=== PATIENT | female | born 1970 | race Caucasian/White ===

== ENCOUNTER → 2024-01-20 06:44 | Outpatient (REF) | payer BC, SELFPAY ==
[2024-01-20 07:22] LABS: % Eosinophils 6.4 % (0-6); % Immature Granulocytes 0.4 % (0-0.5); % Lymphocytes 29.6 % (20.5-51.1); % Neutrophils 53.6 % (42.2-75.2); Absolute Basophils 0.1 10^3/uL (0-0.2); Absolute Eosinophils 0.7 10^3/uL (0-0.7); Absolute Monocytes 0.9 10^3/uL (0.1-0.6); Absolute Neutrophils 5.4 10^3/uL (1.4-6.5); Hematocrit 40.6 % (37.0-47.0); Hemoglobin 13.5 g/dL (12.0-16.0); Mean Corp Hgb Conc. 33.3 g/dL (33.0-37.0); Mean Corpuscular Volume 87.1 fL (81.0-99.0); Mean Platelet Volume 9.2 fL (7.4-10.4); Nucleated Red Blood Cells % 0 %; Platelet Count 409 10^3/uL (130-400); Red Blood Cell Count 4.66 10^6/uL (4.20-5.40); White Blood Cell Count 10.1 10^3/uL (4.8-10.8)
[2024-01-20 07:36] LABS: ALT (SGPT) 25 U/L (0-35); AST (SGOT) 23 U/L (14-36); Albumin 3.9 g/dl (3.5-5.0); Alkaline Phosphatase 142 U/L (38-126); Blood Urea Nitrogen 14 mg/dl (7-17); Calcium 9.1 mg/dl (8.4-10.2); Carbon Dioxide 27 mmol/L (22-30); Chloride 105 mmol/L (98-107); Glucose 119 mg/dl (70-99); Potassium 4.1 mmol/L (3.5-5.1); Sodium 138 mmol/L (135-145); Total Bilirubin 0.6 mg/dl (0.2-1.3); eGFR > 60.00
== END ==
LOC: REG 06:44
PROVIDERS: ATTENDING PHYSICIAN Nurse Practitioner Adult Health; FAMILY PHYSICIAN Family Medicine; REFERRING PHYSICIAN Internal Medicine Rheumatology
DX: E66.01 Morbid (severe) obesity due to excess calories (principal); R73.01 Impaired fasting glucose; D75.839 Thrombocytosis, unspecified; E03.9 Hypothyroidism, unspecified; M05.9 Rheumatoid arthritis with rheumatoid factor, unspecified; M70.61 Trochanteric bursitis, right hip; M79.641 Pain in right hand; R06.09 Other forms of dyspnea; R76.8 Other specified abnormal immunological findings in serum; R94.5 Abnormal results of liver function studies; Z68.42 Body mass index [BMI] 45.0-49.9, adult; Z79.899 Other long term (current) drug therapy
CPT/HCPCS: 36415; 80053; 83036; 85025; 86140

== ENCOUNTER → 2024-03-01 14:01 | Outpatient (REF) | payer BC, SELFPAY | LOC: CLAB 14:01 | PROVIDERS: ATTENDING PHYSICIAN Nurse Practitioner Adult Health; FAMILY PHYSICIAN Dermatology | DX: L30.8 Other specified dermatitis (principal) | CPT/HCPCS: 87070; 87102; 87147; 87186; 87205 ==

== ENCOUNTER → 2024-07-03 06:24 | Outpatient (REF) | payer BC, SELFPAY ==
[2024-07-03 07:26] LABS: % Basophils 0.9 % (0-2); % Eosinophils 6.2 % (0-6); % Immature Granulocytes 0.3 % (0-0.5); % Lymphocytes 32.3 % (20.5-51.1); % Monocytes 7.7 % (1.7-9.3); % Neutrophils 52.6 % (42.2-75.2); Absolute Basophils 0.1 10^3/uL (0-0.2); Absolute Eosinophils 0.6 10^3/uL (0-0.7); Absolute Lymphocytes 3.2 10^3/uL (1.2-3.4); Absolute Monocytes 0.8 10^3/uL (0.1-0.6); Absolute Neutrophils 5.2 10^3/uL (1.4-6.5); Hematocrit 41.7 % (37.0-47.0); Hemoglobin 14.3 g/dL (12.0-16.0); Mean Corp Hgb Conc. 34.3 g/dL (33.0-37.0); Mean Corpuscular Volume 87.4 fL (81.0-99.0); Mean Platelet Volume 9.3 fL (7.4-10.4); Nucleated Red Blood Cells % 0 %; Platelet Count 415 10^3/uL (130-400); Red Blood Cell Count 4.77 10^6/uL (4.20-5.40); Red Cell Dist. Width 14.2 % (11.5-14.5); White Blood Cell Count 9.9 10^3/uL (4.8-10.8)
[2024-07-03 07:40] LABS: ALT (SGPT) 29 U/L (0-35); AST (SGOT) 27 U/L (14-36); Albumin 4.3 g/dl (3.5-5.0); Alkaline Phosphatase 122 U/L (38-126); Blood Urea Nitrogen 21 mg/dl (7-17); Calcium 9.5 mg/dl (8.4-10.2); Carbon Dioxide 25 mmol/L (22-30); Chloride 104 mmol/L (98-107); Glucose 108 mg/dl (70-99); HDL Cholesterol 53 mg/dl; Iron 102 ug/dl (37-170); LDL Cholesterol, Calculated 71 mg/dl; Magnesium 2.1 mg/dl (1.6-2.3); Potassium 4.5 mmol/L (3.5-5.1); Sodium 140 mmol/L (135-145); Total Bilirubin 0.8 mg/dl (0.2-1.3); Total Cholesterol 149 mg/dl (50-199); Total Protein 7.1 g/dl (6.3-8.2); Triglyceride 126 mg/dl (10-149); Very Low Density Lipoprotein 25 mg/dl (0-30); eGFR > 60.00
[2024-07-03 07:49] LABS: Percent Saturation 37 % (20-50); Total Iron Binding Capacity 271 ug/dl (265-497)
[2024-07-03 08:11] LABS: Vitamin D, 25-OH*** 41.8 ng/mL (30-80)
[2024-07-03 08:25] LABS: TSH Reflex To Free T4 1.36 uIU/ml (0.47-4.68)
[2024-07-03 08:29] LABS: Ferritin 74.4 ng/ml (11.1-264.0)
[2024-07-03 08:44] LABS: Vitamin B12 708 pg/ml (239-931)
[2024-07-03 08:45] LABS: Glycohemoglobin (HgbA1c) 5.7 % (4.0-5.6)
[2024-07-04 15:02] LABS: Insulin, Random 16 uIU/mL
[2024-07-04 15:38] LABS: Alk Phos Bone Specific Results 17.3 ug/L
== END ==
LOC: REG 06:24
PROVIDERS: ATTENDING PHYSICIAN Internal Medicine Rheumatology; FAMILY PHYSICIAN Family Medicine; REFERRING PHYSICIAN Physician Assistant Medical
DX: E11.9 Type 2 diabetes mellitus without complications (principal); R20.0 Anesthesia of skin; Z79.899 Other long term (current) drug therapy; R79.82 Elevated C-reactive protein (CRP); D75.839 Thrombocytosis, unspecified; E03.9 Hypothyroidism, unspecified; E55.9 Vitamin D deficiency, unspecified; M05.9 Rheumatoid arthritis with rheumatoid factor, unspecified; M70.61 Trochanteric bursitis, right hip; M79.641 Pain in right hand; R76.8 Other specified abnormal immunological findings in serum; R94.5 Abnormal results of liver function studies; E61.1 Iron deficiency; R73.01 Impaired fasting glucose; Z13.6 Encounter for screening for cardiovascular disorders; R74.8 Abnormal levels of other serum enzymes
CPT/HCPCS: 36415; 80053; 80061; 82306; 82607; 82728; 83036; 83525; 83540; 83550; 83735; 84075; 84443; 85025; 86140

== ENCOUNTER → 2024-08-08 14:02 | Outpatient (REF) | payer BC, SELFPAY | LOC: WDC 14:02 | PROVIDERS: ATTENDING PHYSICIAN Family Medicine | DX: Z12.31 Encounter for screening mammogram for malignant neoplasm of breast (principal) | CPT/HCPCS: 77063; 77067 ==

== ENCOUNTER → 2024-08-10 09:04 | Outpatient (REF) | payer BC, SELFPAY | LOC: WDC 09:04 | PROVIDERS: ATTENDING PHYSICIAN Family Medicine | DX: R92.8 Other abnormal and inconclusive findings on diagnostic imaging of breast (principal) | CPT/HCPCS: 76642 ==

== ENCOUNTER → 2024-09-04 06:32 | Day surgery (SDC) | payer BC, SELFPAY | LOC: GI 06:32 | PROVIDERS: ATTENDING PHYSICIAN Internal Medicine Gastroenterology | DX: Z12.11 Encounter for screening for malignant neoplasm of colon (principal); K64.8 Other hemorrhoids; D12.4 Benign neoplasm of descending colon; R12 Heartburn; K31.89 Other diseases of stomach and duodenum; Z86.0100 Personal history of colon polyps, unspecified | CPT/HCPCS: 45385; 43239; 88305; 88342 ==

== ENCOUNTER → 2024-10-03 12:22 | Outpatient (REF) | payer BC, SELFPAY | LOC: CLAB 12:22 | PROVIDERS: ATTENDING PHYSICIAN Obstetrics & Gynecology | DX: N95.0 Postmenopausal bleeding (principal) | CPT/HCPCS: 88305 ==

== ENCOUNTER → 2024-11-02 06:32 | Outpatient (REF) | payer BC, SELFPAY ==
[2024-11-02 07:07] LABS: % Basophils 1.1 % (0-2); % Eosinophils 6.9 % (0-6); % Immature Granulocytes 0.4 % (0-0.5); % Monocytes 7.9 % (1.7-9.3); % Neutrophils 44.7 % (42.2-75.2); Absolute Basophils 0.1 10^3/uL (0-0.2); Absolute Eosinophils 0.6 10^3/uL (0-0.7); Absolute Lymphocytes 3.2 10^3/uL (1.2-3.4); Absolute Monocytes 0.7 10^3/uL (0.1-0.6); Absolute Neutrophils 3.7 10^3/uL (1.4-6.5); Hematocrit 41.5 % (37.0-47.0); Hemoglobin 13.5 g/dL (12.0-16.0); Mean Corp Hgb Conc. 32.5 g/dL (33.0-37.0); Mean Corpuscular Hgb 28.9 pg (27.0-31.0); Mean Corpuscular Volume 88.9 fL (81.0-99.0); Mean Platelet Volume 9.5 fL (7.4-10.4); Nucleated Red Blood Cells % 0 %; Platelet Count 310 10^3/uL (130-400); Red Blood Cell Count 4.67 10^6/uL (4.20-5.40); Red Cell Dist. Width 13.6 % (11.5-14.5); White Blood Cell Count 8.2 10^3/uL (4.8-10.8)
[2024-11-02 07:37] LABS: ALT (SGPT) 24 U/L (0-35); AST (SGOT) 20 U/L (14-36); Albumin 4.2 g/dl (3.5-5.0); Alkaline Phosphatase 95 U/L (38-126); Blood Urea Nitrogen 15 mg/dl (7-17); Calcium 9.2 mg/dl (8.4-10.2); Carbon Dioxide 29 mmol/L (22-30); Chloride 102 mmol/L (98-107); Glucose 103 mg/dl (70-99); Sodium 139 mmol/L (135-145); Total Bilirubin 0.5 mg/dl (0.2-1.3); Total Protein 7.1 g/dl (6.3-8.2); eGFR > 60.00
[2024-11-02 19:06] LABS: FSH 48.2 mIU/ml
== END ==
LOC: REG 06:32
PROVIDERS: ATTENDING PHYSICIAN Internal Medicine Rheumatology; FAMILY PHYSICIAN Obstetrics & Gynecology
DX: D75.839 Thrombocytosis, unspecified (principal); E03.9 Hypothyroidism, unspecified; E55.9 Vitamin D deficiency, unspecified; M05.9 Rheumatoid arthritis with rheumatoid factor, unspecified; M70.61 Trochanteric bursitis, right hip; M79.641 Pain in right hand; R76.8 Other specified abnormal immunological findings in serum; R94.5 Abnormal results of liver function studies; Z79.899 Other long term (current) drug therapy; N93.9 Abnormal uterine and vaginal bleeding, unspecified
CPT/HCPCS: 36415; 80053; 83001; 83002; 85025; 86140

== ENCOUNTER → 2025-01-04 06:24 | Outpatient (REF) | payer BC, SELFPAY ==
[2025-01-04 07:15] LABS: % Basophils 1.2 % (0-2); % Eosinophils 11.3 % (0-6); % Immature Granulocytes 0.5 % (0-0.5); % Lymphocytes 31.6 % (20.5-51.1); % Monocytes 8.5 % (1.7-9.3); % Neutrophils 46.9 % (42.2-75.2); Absolute Basophils 0.1 10^3/uL (0-0.2); Absolute Lymphocytes 2.7 10^3/uL (1.2-3.4); Absolute Monocytes 0.7 10^3/uL (0.1-0.6); Hematocrit 42.4 % (37.0-47.0); Hemoglobin 13.8 g/dL (12.0-16.0); Mean Corp Hgb Conc. 32.5 g/dL (33.0-37.0); Mean Corpuscular Hgb 28.9 pg (27.0-31.0); Mean Corpuscular Volume 88.7 fL (81.0-99.0); Mean Platelet Volume 9.6 fL (7.4-10.4); Nucleated Red Blood Cells % 0 %; Platelet Count 336 10^3/uL (130-400); Red Blood Cell Count 4.78 10^6/uL (4.20-5.40); Red Cell Dist. Width 14.2 % (11.5-14.5); White Blood Cell Count 8.5 10^3/uL (4.8-10.8)
[2025-01-04 07:49] LABS: ALT (SGPT) 29 U/L (0-35); AST (SGOT) 21 U/L (14-36); Albumin 3.9 g/dl (3.5-5.0); Alkaline Phosphatase 111 U/L (38-126); Blood Urea Nitrogen 20 mg/dl (7-17); Calcium 9.6 mg/dl (8.4-10.2); Carbon Dioxide 25 mmol/L (22-30); Chloride 105 mmol/L (98-107); Glucose 100 mg/dl (70-99); HDL Cholesterol 56 mg/dl; Iron 84 ug/dl (37-170); LDL Cholesterol, Calculated 66 mg/dl; Potassium 4.6 mmol/L (3.5-5.1); Sodium 141 mmol/L (135-145); Total Bilirubin 0.7 mg/dl (0.2-1.3); Total Cholesterol 141 mg/dl (50-199); Total Protein 6.9 g/dl (6.3-8.2); Triglyceride 97 mg/dl (10-149); Very Low Density Lipoprotein 19 mg/dl (0-30); eGFR > 60.00
[2025-01-04 07:59] LABS: Percent Saturation 33 % (20-50); Total Iron Binding Capacity 252 ug/dl (265-497)
[2025-01-04 08:31] LABS: TSH Reflex To Free T4 0.91 uIU/ml (0.47-4.68)
[2025-01-04 08:35] LABS: Ferritin 73.4 ng/ml (11.1-264.0)
[2025-01-04 09:50] LABS: Glycohemoglobin (HgbA1c) 5.8 % (4.0-5.6)
== END ==
LOC: REG 06:24
PROVIDERS: ATTENDING PHYSICIAN Internal Medicine Rheumatology; FAMILY PHYSICIAN Family Medicine
DX: E03.9 Hypothyroidism, unspecified (principal); E55.9 Vitamin D deficiency, unspecified; M05.9 Rheumatoid arthritis with rheumatoid factor, unspecified; M70.61 Trochanteric bursitis, right hip; M79.641 Pain in right hand; R76.8 Other specified abnormal immunological findings in serum; R94.5 Abnormal results of liver function studies; Z79.899 Other long term (current) drug therapy; R73.01 Impaired fasting glucose; E61.1 Iron deficiency; Z13.6 Encounter for screening for cardiovascular disorders
CPT/HCPCS: 36415; 80053; 80061; 82728; 83036; 83540; 83550; 84443; 85025; 86140

== ENCOUNTER → 2025-04-12 15:51 | Outpatient (REF) | payer BC, SELFPAY | LOC: RAD 15:51 | PROVIDERS: ATTENDING PHYSICIAN Internal Medicine Rheumatology; FAMILY PHYSICIAN Family Medicine | DX: M05.9 Rheumatoid arthritis with rheumatoid factor, unspecified (principal); M53.3 Sacrococcygeal disorders, not elsewhere classified; M70.61 Trochanteric bursitis, right hip | CPT/HCPCS: 72114; 72170 ==

== ENCOUNTER → 2025-04-19 18:05 | Outpatient (REF) | payer BC, SELFPAY | LOC: CPAP 18:05 | PROVIDERS: ATTENDING PHYSICIAN Obstetrics & Gynecology | DX: Z01.419 Encounter for gynecological examination (general) (routine) without abnormal findings (principal); Z11.51 Encounter for screening for human papillomavirus (HPV) | CPT/HCPCS: 87624 ==

== ENCOUNTER → 2025-04-26 06:33 | Outpatient (REF) | payer BC, SELFPAY ==
[2025-04-26 07:44] LABS: % Basophils 0.9 % (0-2); % Eosinophils 10.3 % (0-6); % Immature Granulocytes 0.4 % (0-0.5); % Lymphocytes 27.1 % (20.5-51.1); % Monocytes 9.3 % (1.7-9.3); Absolute Basophils 0.1 10^3/uL (0-0.2); Absolute Eosinophils 0.8 10^3/uL (0-0.7); Absolute Lymphocytes 2.2 10^3/uL (1.2-3.4); Absolute Monocytes 0.7 10^3/uL (0.1-0.6); Absolute Neutrophils 4.2 10^3/uL (1.4-6.5); Hematocrit 40.7 % (37.0-47.0); Hemoglobin 13.7 g/dL (12.0-16.0); Mean Corp Hgb Conc. 33.7 g/dL (33.0-37.0); Mean Corpuscular Hgb 29.7 pg (27.0-31.0); Mean Corpuscular Volume 88.1 fL (81.0-99.0); Mean Platelet Volume 9.6 fL (7.4-10.4); Nucleated Red Blood Cells % 0 %; Platelet Count 347 10^3/uL (130-400); Red Blood Cell Count 4.62 10^6/uL (4.20-5.40); Red Cell Dist. Width 13.5 % (11.5-14.5)
[2025-04-26 08:25] LABS: ALT (SGPT) 27 U/L (0-35); AST (SGOT) 20 U/L (14-36); Albumin 4.2 g/dl (3.5-5.0); Alkaline Phosphatase 94 U/L (38-126); Blood Urea Nitrogen 16 mg/dl (7-17); Calcium 9.6 mg/dl (8.4-10.2); Carbon Dioxide 27 mmol/L (22-30); Chloride 109 mmol/L (98-107); Glucose 104 mg/dl (70-99); HDL Cholesterol 51 mg/dl; LDL Cholesterol, Calculated 68 mg/dl; Magnesium 2.1 mg/dl (1.6-2.3); Potassium 4.4 mmol/L (3.5-5.1); Sodium 142 mmol/L (135-145); Total Bilirubin 0.8 mg/dl (0.2-1.3); Total Cholesterol 134 mg/dl (50-199); Total Protein 7.2 g/dl (6.3-8.2); Triglyceride 79 mg/dl (10-149); Uric Acid 4.9 mg/dl (2.5-6.2); Very Low Density Lipoprotein 15 mg/dl (0-30); eGFR > 60.00
[2025-04-26 08:36] LABS: FSH 54.6 mIU/ml; Free T4 1.78 ng/dl (0.78-2.19)
[2025-04-26 08:50] LABS: TSH 0.87 uIU/ml (0.47-4.68)
[2025-04-26 08:51] LABS: Estradiol 26.3 pg/ml
[2025-04-26 09:35] LABS: Glycohemoglobin (HgbA1c) 5.5 % (4.0-5.6)
== END ==
LOC: REG 06:33
PROVIDERS: ATTENDING PHYSICIAN Internal Medicine; FAMILY PHYSICIAN Family Medicine; OTHER PHYSICIAN Internal Medicine Rheumatology
DX: E11.9 Type 2 diabetes mellitus without complications (principal); E78.00 Pure hypercholesterolemia, unspecified; G47.33 Obstructive sleep apnea (adult) (pediatric); I10 Essential (primary) hypertension; E88.810 Metabolic syndrome; N93.9 Abnormal uterine and vaginal bleeding, unspecified; E03.9 Hypothyroidism, unspecified; E55.9 Vitamin D deficiency, unspecified; M05.9 Rheumatoid arthritis with rheumatoid factor, unspecified; M53.3 Sacrococcygeal disorders, not elsewhere classified; M54.59 Other low back pain; R76.8 Other specified abnormal immunological findings in serum; R94.5 Abnormal results of liver function studies; Z79.899 Other long term (current) drug therapy; M76.61 Achilles tendinitis, right leg
CPT/HCPCS: 36415; 80053; 80061; 82670; 83001; 83002; 83036; 83735; 84439; 84443; 84550; 85025; 86140

== ENCOUNTER → 2025-05-17 07:55 | Outpatient (REF) | payer BC, SELFPAY | LOC: HWRAD 07:55 | PROVIDERS: ATTENDING PHYSICIAN Obstetrics & Gynecology; FAMILY PHYSICIAN Family Medicine | DX: N93.9 Abnormal uterine and vaginal bleeding, unspecified (principal) | CPT/HCPCS: 76830; 76856 ==

== ENCOUNTER 2025-06-28 06:08 | Day surgery (SDC) | payer BC, SELFPAY ==
[2025-06-24 14:20] VITALS: BMI 36.0
[2025-06-28] VITALS (12 sets, daily range): BP systolic 117–144; BP diastolic 53–80; BMI 36.0
[2025-06-28] MEDS: NEURONTIN 300 MG PO (08:32)
[2025-06-28] MEDS: TYLENOL 1000 MG PO (08:32)
[2025-06-28] MEDS: NORMOSOL-R/PLASMALYTE-A 1000 IV (08:33)
--- NOTE | 2025-06-28 14:13 | PTCARENOTE ---
Director of [facility] in to speak with patient at 1355, Dr. Sal followed to speak with patient regarding delays at 1410. RN checked on patient.
--- NOTE | 2025-06-29 09:16 | W.IMMPOSTOP ---
Surgical Immed Post Op Note
-
Primary Surgeon: Korina Saunders DO
Assisting Surgeon: none
Pre-op Diagnosis: Postmenopausal bleeding
Post-op Diagnosis:same
Procedure Performed: hysteroscopy D&C
Anesthesia Type: general LMA
Specimen / Cultures: 1. endocervical curettings 2. endometrial curettings
Estimated Blood Loss: <5ml
Complications: none
fluid deficit 75mL NSS
Operative Findings: endometrial lining is atrophic, thin. No evidence of mass, polyp, fibroid or other abnormality.
Bilateral tubal ostia seen.
Counts correct x2.
Stable to recovery.
== END 2025-06-28 18:20 | disposition home or self-care (01) ==
LOC: SDS 06:08
PROVIDERS: ATTENDING PHYSICIAN Obstetrics & Gynecology; FAMILY PHYSICIAN Family Medicine
DX: N95.0 Postmenopausal bleeding (principal)
CPT/HCPCS: 58558; 36415; 86850; 86900; 86901; 88305; 93005

== ENCOUNTER → 2025-07-02 16:38 | Outpatient (REF) | payer BC, SELFPAY | LOC: RAD 16:38 | PROVIDERS: ATTENDING PHYSICIAN Internal Medicine Critical Care Medicine; FAMILY PHYSICIAN Family Medicine | DX: R05.1 Acute cough (principal) | CPT/HCPCS: 71046 ==

== ENCOUNTER 2025-08-16 08:18 | Emergency (ER) | payer BC, SELFPAY ==
[2025-08-16 08:18] VITALS: BP 159/89
[2025-08-16 08:20] VITALS: BMI 36.2
[2025-08-16 08:22] VITALS: BP 159/86
--- NOTE | 2025-08-16 08:32 | ED.GENMED ---
History of Present Illness
General
Chief Complaint: Weakness
Source: patient
Exam Limitations: none
Time Seen by Provider: 08/16/25 08:27
History of Present Illness
History of Present Illness:
See MDM
Past History
Past History
ED Past Medical History: HTN, Hypothyroidism, Psychiatric (Depression) and Other (RA on Humira)
Social History
Tobacco: Non-smoker
Alcohol: Occasional
Drug: None
Personal:
Living: with family
Employment: Employed
Family History
Family History: Diabetes and CAD
Phy Exam
Physical Exam
Physical Exam:
See MDM
Course
Orders/Labs/Results
Orders:
Orders
08/16/25 08:28
Electrocardiogram (*1) Urgent
Reason for Study: Fatigue / Weakness
EKG- Treatment ONCE
0.9% Sodium Chloride 1000 ml [Nss] 1,000 ml IV BOLUS
Ondansetron Injectable [Zofran] 4 mg IV NOW STA
08/16/25 08:33
Complete Blood Count/With Diff Urgent
08/16/25 08:34
Comprehensive Metabolic Panel Urgent
Free T4 Urgent
Lipase Urgent
Magnesium Urgent
TSH Reflex To Free T4 Urgent
Troponin I Urgent
08/16/25 09:18
Prochlorperazine [Compazine] 10 mg IV NOW STA
08/16/25 10:57
Venlafaxine [Effexor] 100 mg PO NOW STA
Abnormal Lab Results
08/16/25 08/16/25
08:33 08:34
Absolute Monos (auto) 0.8 H 10^3/uL
(0.1-0.6)
Monocytes % 10.5 H %
(1.7-9.3)
Chloride 108 H mmol/L
(98-107)
Glucose 104 H mg/dl
(70-99)
TSH (Reflex) 0.31 L uIU/ml
(0.47-4.68)
Free T4 2.49 H ng/dl
(0.78-2.19)
08/16/25 08:33
08/16/25 08:34
Vital Signs
Initial and Last Documented VS:
Initial Vital Signs
BP
159/89
08/16/25 08:18
Last Documented Vital Signs
Temp Pulse Resp BP Pulse Ox
97 F 80 16 142/75 95
08/16/25 08:22 08/16/25 10:00 08/16/25 10:00 08/16/25 09:00 08/16/25 10:00
MDM/Problems Addressed
Differential Diagnosis Includes:
Note:
CHIEF COMPLAINT(S)
Generalized weakness, fatigue, dizziness described as lightheadedness.
HISTORY OF PRESENT ILLNESS
The patient is a 55-year-old female who presents with symptoms of generalized weakness, fatigue, and dizziness, which she describes as lightheadedness. The symptoms commenced yesterday. She initially attributed her fatigue and associated symptoms to
work-related. Alongside these symptoms, she felt nauseous and assumed eating would alleviate the discomfort. Later in the day, she experienced an episode of vomiting, which provided some relief. Upon awakening today, she felt somewhat improved, but
she did not take her scheduled medications last night due to nausea. Missed doses included her desvenlafaxine medication. In the past, the patient has experienced similar symptoms when missing doses of Venlafaxine or during periods when her
physician was tapering her off the medication. The patient expressed uncertainty regarding whether the current symptoms are medication related. Upon arrival at the emergency department, she appeared weak and pale with clinical signs of dehydration.
We do long discussion about looking for alternative sources of generalized fatigue and weakness rather than blaming this on medication related.
PHYSICAL EXAM
General: Alert, no acute distress.
Skin: Pale and clammy
Head: Normocephalic, atraumatic
Neck: Appears supple, trachea midline.
Eyes, Ears, Nose, Mouth, and Throat: Dry mucous membranes. EOMI. No nystagmus noted
Cardiovascular: No signs of cyanosis. No murmur auscultated
Respiratory: Respirations are non-labored. Lungs are grossly clear
Abdomen: Non-distended
Musculoskeletal: No deformities. No leg pitting edema
Neurological: No focal neurological deficit observed. Normal finger-nose bilaterally
Psychiatric: Cooperative, appropriate mood and affect.
PLAN
- Treatment for nausea and dehydration to be initiated.
- Obtain basic blood work and screening electrocardiogram.
- Rule out thyroid abnormalities.
- Consider the effects of missed desvenlafaxine dose as a diagnosis of exclusion.
DIFFERENTIAL DIAGNOSIS
The Differential Diagnosis includes, in no particular order and is not limited to:
- Dehydration
- Medication withdrawal effect (desvenlafaxine)
- Thyroid dysfunction
- Anemia
- Viral infection
- Hypoglycemia
- Vestibular dysfunction
- Anxiety or stress-related disorder
- Myocardial infarction
- Electrolyte imbalance
My independent EKG interpretation is:
- Time of EKG: Not specified
- Rhythm: Sinus rhythm
- Heart rate: 77 beats per minute
- Left fascicular block observed
- No ST segment elevation or inversion
- Findings appear unchanged from prior EKG
08/16/25 - 10:00
Patient reports feeling somewhat better but required a dose of Compazine for nausea. Due to persistent symptoms, a dose of Venlafaxine will be administered.
SUMMARY OF ENCOUNTER
The patient was seen in the emergency department for generalized weakness, fatigue, and dizziness described as lightheadedness. The symptoms began after she missed her dose of venlafaxine due to nausea. Upon arrival, she appeared weak and pale and
exhibited signs of dehydration. The management involved treatment for nausea and dehydration, with improvement noted in her symptoms.
DISPOSITION
Discharge.
ASSESSMENT
The likely cause of the patients symptoms is withdrawal effects from a missed dose of venlafaxine, with dehydration contributing to her condition.
EMERGENCY TREATMENTS ADMINISTERED
The patient was given Compazine (prochlorperazine) for nausea.
PLAN
The patient will be discharged with instructions to take regular immediate-release venlafaxine if she misses her nighttime extended-release dose to avoid withdrawal symptoms.
MEDICATION RECONCILIATION
- Prescription provided for Compazine (prochlorperazine) for nausea.
- Prescription for immediate-release venlafaxine tablets to be taken in the morning if the nighttime extended-release dose is missed.
MEDICAL DECISION MAKING
-Complexity of Data Reviewed: Chronic conditions affecting care include the potential withdrawal effect from medication. Differential diagnosis includes dehydration, medication withdrawal effect (venlafaxine), thyroid dysfunction, and other causes
of dizziness and weakness.
-Data:
Category 1
My independent EKG interpretation is:
- Rhythm: Sinus rhythm
- Heart rate: 77 beats per minute
- Left fascicular block observed
- No ST segment elevation or inversion
Findings appear unchanged from prior EKG
-Risk: Prescription medication was prescribed, including prochlorperazine and immediate-release venlafaxine for managing her symptoms and potential withdrawal effects.
DIAGNOSIS
- Medication withdrawal effect (Venlafaxine) - ICD-10: T46.6X5A
- Dehydration - ICD-10: E86.0
*Pulse Oximetry
SaO2: 100
Oxygen Mode of Delivery: Room air
Patient hypoxic: no
*Critical Care Note
Total Time (30-74mins, 75-104mins- exclusive of procedures): Not Applicable
ED Attending Note
-
Portions of this chart may have been created with voice recognition software.� Occasional wrong word or��sound alike� substitutions may have occurred due to the inherent limitations of voice recognition software.
Discharge Plan
Departure
Patient Disposition: Home (Routine Discharge)
Date of Disposition: 10/10/25
Time of Disposition: 11:09
Patient with high blood pressure during this ER visit?: Yes
Discharge Problem:
Weakness
Instructions: BLOOD PRESSURE
Prescriptions:
New
venlafaxine 100 mg tablet
100 mg PO BID Qty: 60 0RF
prochlorperazine maleate [Compazine] 10 mg tablet
10 mg PO Q8H PRN (Reason: nausea and vomiting) Qty: 20 0RF
No Action
ascorbic acid (vitamin C) [Vitamin C] 500 MG tablet
500 mg PO QPM
montelukast 10 MG tablet
10 mg PO QPM
cholecalciferol (vitamin D3) 2,000 UNITS tablet
2,000 units PO QPM
multivitamin with folic acid [Tab-A-Suly] 1 TABLET tablet
1 tab PO QPM
acetaminophen [Tylenol Extra Strength] 500 MG tablet
500 mg PO Q6HPRN PRN (Reason: MILD PAIN)
methotrexate sodium 2.5 MG tablet
15 mg PO MO
leucovorin calcium 5 MG tablet
10 mg PO MO
Patient Comments:
09/28/21 - 12 HOURS AFTER METHOTREXATE DOSE
albuterol sulfate 1 PUFF HFA aerosol inhaler
2 puff inhalation R Q4HPRN PRN (Reason: SOB)
desvenlafaxine succinate [Pristiq] 100 MG tablet extended release 24 hr
100 mg PO HS
sulfasalazine 500 MG tablet
500 mg PO BID
lisinopril 2.5 MG tablet
2.5 mg PO HS
levothyroxine 137 mcg Tablet
137 mcg PO DAILY
rosuvastatin [Crestor] 10 mg Tablet
10 mg PO HS
Enbrel 50 mg/mL (1 mL) Syringe
50 mg SC QWEEK
budesonide-formoterol [Symbicort] 160-4.5 mcg/actuation Hfa Aerosol Inhaler
1 puff INHALATION BID
Mounjaro 10 mg/0.5 mL Pen Injector
10 mg SC SA
Referrals:
Olman Puri Jr., DO [Family Provider, Internal Medicine]
Stand Alone Forms: Return to Work
Activity Restrictions/Additional Instructions:
Please return for worsening symptoms.
Interventions
Interventions:
*Risk Screen - Suicide Last Done: 08/16/25 08:41
*General Assessment Last Done: 08/16/25 08:41
*Neglect/Abuse Screening Last Done: 08/16/25 08:41
*ED- Fall Risk Assessment Last Done: 08/16/25 08:41
*ED COVID-19 Vaccine History Last Done: 08/16/25 08:41
*ED Influenza Vaccine History Last Done: 08/16/25 08:41
ED- Cardiac Assessment Last Done: 08/16/25 08:28
ED- Neurological Assessment Last Done: 08/16/25 08:28
ED- Pulmonary Assessment Last Done: 08/16/25 08:28
Discharge Date and Time
Print Language: GABONESE
[2025-08-16] MEDS: ZOFRAN 4 MG IV (08:40)
[2025-08-16] MEDS: NSS 1000 IV (08:40)
[2025-08-16 08:43] LABS: Hematocrit 43.1 % (37.0-47.0); Hemoglobin 14.9 g/dL (12.0-16.0); Mean Corp Hgb Conc. 34.6 g/dL (33.0-37.0); Mean Corpuscular Volume 85.9 fL (81.0-99.0); Nucleated Red Blood Cells % 0 %; Platelet Count 305 10^3/uL (130-400); Red Cell Dist. Width 13.1 % (11.5-14.5)
[2025-08-16 08:58] LABS: ALT (SGPT) 28 U/L (0-35); AST (SGOT) 25 U/L (14-36); Albumin 4.6 g/dl (3.5-5.0); Alkaline Phosphatase 103 U/L (38-126); Blood Urea Nitrogen 16 mg/dl (7-17); Calcium 9.9 mg/dl (8.4-10.2); Carbon Dioxide 26 mmol/L (22-30); Chloride 108 mmol/L (98-107); Estimated Creatinine Clearance 110 ml/min; Glucose 104 mg/dl (70-99); Lipase 160 U/L (23-300); Magnesium 2.2 mg/dl (1.6-2.3); Potassium 4.0 mmol/L (3.5-5.1); Sodium 141 mmol/L (135-145); Total Protein 7.7 g/dl (6.3-8.2); eGFR > 60.00
[2025-08-16 09:00] VITALS: BP 142/75
[2025-08-16 09:10] LABS: Troponin I < 0.012 ng/ml
[2025-08-16] MEDS: COMPAZINE 10 MG IV (09:33)
[2025-08-16] MEDS: EFFEXOR 100 MG PO (11:12)
[2025-08-16 11:17] VITALS: BP 138/85
== END 2025-08-16 11:25 | disposition home or self-care (01) ==
LOC: EMR 08:18
PROVIDERS: EMERGENCY PHYSICIAN Student in an Organized Health Care Education/Training Program; FAMILY PHYSICIAN Family Medicine
DX: E86.0 Dehydration (principal); R53.1 Weakness; R11.0 Nausea; E03.9 Hypothyroidism, unspecified; I10 Essential (primary) hypertension; M06.9 Rheumatoid arthritis, unspecified; Z79.899 Other long term (current) drug therapy
CPT/HCPCS: 96374; 96375; 96361; 99284; 80053; 83690; 83735; 84439; 84443; 84484; 85025; 93005

== ENCOUNTER → 2025-08-22 14:08 | Outpatient (REF) | payer BC, SELFPAY | LOC: WDC 14:08 | PROVIDERS: ATTENDING PHYSICIAN Family Medicine | DX: R92.8 Other abnormal and inconclusive findings on diagnostic imaging of breast (principal); Z12.31 Encounter for screening mammogram for malignant neoplasm of breast | CPT/HCPCS: 76642; 77063; 77067 ==

== ENCOUNTER → 2025-09-24 06:27 | Outpatient (REF) | payer BC, SELFPAY ==
[2025-09-24 08:14] LABS: ALT (SGPT) 31 U/L (0-35); AST (SGOT) 23 U/L (14-36); Albumin 4.3 g/dl (3.5-5.0); Alkaline Phosphatase 92 U/L (38-126); Blood Urea Nitrogen 15 mg/dl (7-17); Calcium 9.4 mg/dl (8.4-10.2); Carbon Dioxide 28 mmol/L (22-30); Chloride 103 mmol/L (98-107); Glucose 90 mg/dl (70-99); HDL Cholesterol 49 mg/dl; LDL Cholesterol, Calculated 66 mg/dl; Potassium 4.0 mmol/L (3.5-5.1); Sodium 140 mmol/L (135-145); Total Protein 6.9 g/dl (6.3-8.2); Very Low Density Lipoprotein 24 mg/dl (0-30); eGFR > 60.00
[2025-09-24 08:20] LABS: Hematocrit 40.6 % (37.0-47.0); Hemoglobin 13.6 g/dL (12.0-16.0); Mean Corp Hgb Conc. 33.5 g/dL (33.0-37.0); Mean Corpuscular Volume 86.6 fL (81.0-99.0); Nucleated Red Blood Cells % 0 %; Platelet Count 301 10^3/uL (130-400); Red Cell Dist. Width 13.0 % (11.5-14.5)
[2025-09-24 08:23] LABS: C-Reactive Protein 12.40 mg/L (0.0-10.00)
[2025-09-24 08:39] LABS: Vitamin D, 25-OH*** 53.3 ng/mL (30-80)
[2025-09-24 11:02] LABS: Glycohemoglobin (HgbA1c) 5.3 % (4.0-5.9)
== END ==
LOC: REG 06:27
PROVIDERS: ATTENDING PHYSICIAN Nurse Practitioner Family; FAMILY PHYSICIAN Family Medicine
DX: Z13.6 Encounter for screening for cardiovascular disorders (principal); E55.9 Vitamin D deficiency, unspecified; G47.33 Obstructive sleep apnea (adult) (pediatric); E78.00 Pure hypercholesterolemia, unspecified; E03.9 Hypothyroidism, unspecified; M05.79 Rheumatoid arthritis with rheumatoid factor of multiple sites without organ or systems involvement; D50.9 Iron deficiency anemia, unspecified; E11.9 Type 2 diabetes mellitus without complications
CPT/HCPCS: 36415; 80053; 80061; 82306; 83036; 83525; 84443; 85025; 86140